=== PATIENT | female | born 1995 | race Hispanic/Latino ===

== ENCOUNTER 2019-11-02 16:48 | Inpatient (IN) | payer BC ==
[~2019-11-02] VITALS: Ht 157.5 cm; Wt 52.2 kg
[2019-11-02] MEDS ORDERED: AMPICILLIN 2GM+NS 100ML 100 ML IV SCH (18:00)
[2019-11-02] MEDS ORDERED: MORPHINE SULFATE 10 MG/ML 1ML SYG IM PRN (18:00)
[2019-11-02 18:15] LABS: MEAN CORPUSCULAR HEMOGLOBIN 30.7 pg (27.0-33.0); MEAN CORPUSCULAR HGB CONC 33.5 g/dL (32.0-36.0); MEAN CORPUSCULAR VOLUME 91.6 fL (79-99); RED BLOOD CELL COUNT(AUTO) 4.04 MIL/uL (4.00-5.50); RED CELL DISTRIBUTION WIDTH 12.8 % (11.0-15.5); WHITE BLOOD COUNT (AUTO) 8.2 K/uL (4.8-10.8)
[2019-11-02] MEDS: LACTATED RINGERS 1000ML 1,000 ML IV PRN (18:20)
[2019-11-02 18:21] LABS: BILIRUBIN,URINE Negative (NEGATIVE); COLOR,URINE Yellow (YELLOW); GLUCOSE, URINE (UA) TRACE mg/dL (NEGATIVE); KETONES,URINE Negative (NEGATIVE); LEUKOCYTE ESTERASE ,URINE Moderate (NEGATIVE); NITRATE,URINE Negative (NEGATIVE); OCCULT BLOOD,URINE Negative (NEGATIVE); PROTEIN,URINE Negative (NEGATIVE)
[2019-11-02 18:27] LABS: APPEARANCE,URINE SLIGHTLY CLOUDY (CLEAR)
[2019-11-02 18:30] LABS: AMPHET/METH SCREEN,URINE NEGATIVE (NEGATIVE); BARBITURATE SCREEN, URINE NEGATIVE (NEGATIVE); BENZODIAZEPINES SCREEN,URINE NEGATIVE (NEGATIVE); CANNABINOID SCREEN,URINE NEGATIVE (NEGATIVE); COCAINE SCREEN,URINE NEGATIVE (NEGATIVE); OPIATE SCREEN,URINE NEGATIVE (NEGATIVE); PHENCYCLIDINE SCREEN,URINE NEGATIVE (NEGATIVE)
[2019-11-02 19:12] LABS: BACTERIA,URINE Moderate /HPF (None Seen); MUCUS,URINE Few LPF (None Seen); RBC,URINE 0-1 /HPF (0-1); SQUAMOUS EPITHELIAL CELL,UR Many /HPF (0-2)
[2019-11-02] MEDS: AMPICILLIN 1GM+NS 50ML 50 ML IV SCH (22:36)
[2019-11-03] MEDS: LACTATED RINGERS 1000ML 1,000 ML IV PRN ×2 (02:09→23:40)
[2019-11-03] MEDS: AMPICILLIN 1GM+NS 50ML 50 ML IV SCH ×6 (02:09→23:40)
[2019-11-03] MEDS: OXYTOCIN-LR 20 UNITS/1000 ML 1,000 ML IV SCH ×2 (05:08→23:40)
[2019-11-03] MEDS ORDERED: MEPERIDINE-PF 50 MG/ML SYG IVP SCH (10:00)
[2019-11-03] MEDS ORDERED: PROMETHAZINE HCL 25 MG/ML 1ML AMPULE IM SCH (10:00)
[2019-11-03] MEDS ORDERED: EPHEDRINE SULFATE 50 MG/ML AMPULE IVP PRN ×2 (10:00→14:15)
[2019-11-03] MEDS ORDERED: NALOXONE HCL 0.4 MG/1 ML ML IV PRN ×2 (10:00→14:15)
[2019-11-03] MEDS ORDERED: LACTATED RINGERS 500 ML 500 ML IV PRN ×2 (10:00→14:15)
[2019-11-03] MEDS ORDERED: ROPIVACAINE 0.2% 100ML VIAL 100 ML EP SCH ×2 (10:00→14:15)
[2019-11-03] MEDS ORDERED: FENTANYL CITRATE PF 50 MCG/1 ML 2ML VIAL ONE (15:02)
[2019-11-03 19:14] VITALS: BP 114/74
[2019-11-03 19:43] LABS: RAPID PLASMA REAGIN NONREACTIVE (NONREACTIVE)
[2019-11-03] MEDS ORDERED: LIDOCAINE HCL 1% 20 ML VIAL ONE (23:42)
[2019-11-04] MEDS ORDERED: BENZOCAINE/LANOLIN/ALOE VERA 60 ML AEROSOL TP PRN (04:15)
[2019-11-04] MEDS ORDERED: WITCH HAZEL 1 PAD TP PRN (04:15)
[2019-11-04] MEDS ORDERED: OXYTOCIN-LR 20 UNITS/1000 ML 1,000 ML IV SCH (04:15)
[2019-11-04] MEDS ORDERED: ACETAMINOPHEN-CODEINE 300/30MG TAB PO PRN (04:15)
[2019-11-04] MEDS ORDERED: LANOLIN 30GM OINTMENT TP PRN (04:15)
[2019-11-04] MEDS: IBUPROFEN 600 MG TABLET PO PRN ×2 (05:03→18:52)
--- NOTE | 2019-11-04 07:06 | NUR ---
REPORT GIVEN TO CHAPO ANDERSONN
[2019-11-04 07:28] VITALS: BP 115/61
[2019-11-04] MEDS: DOCUSATE SODIUM 100 MG CAP PO SCH ×2 (09:22→21:35)
[2019-11-04 11:15] VITALS: BP 130/71
--- NOTE | 2019-11-04 12:00 | NUR ---
SPOKE WITH DR. HARRIS VIA TELEPHONE. UPDATED MD ON PATIENT'S STATUS. PATIENT IS OKAY TO BE DISCHARGED TODAY IF BABY IS BEING DISCHARGED.
[2019-11-04 16:30] VITALS: BP 126/60
[2019-11-04] MEDS ORDERED: PNV1TABL17 PO (18:46)
[2019-11-04 19:25] VITALS: BP 111/76
[2019-11-04 23:22] VITALS: BP 110/69
[2019-11-05] MEDS: AMPICILLIN 1GM+NS 50ML 50 ML IV SCH (02:00)
[2019-11-05 03:13] VITALS: BP 125/79
[2019-11-05] MEDS: IBUPROFEN 600 MG TABLET PO PRN ×2 (03:31→08:50)
[2019-11-05 06:14] LABS: HEPATITIS Bs ANTIGEN SCREEN P Negative (Negative)
[2019-11-05 07:31] VITALS: BP 117/78
[2019-11-05] MEDS: DOCUSATE SODIUM 100 MG CAP PO SCH (08:50)
[2019-11-05 11:10] VITALS: BP 115/81
--- NOTE | 2019-11-05 13:25 | NUR ---
DISCHARGE PT LEFT UNIT VIA WHEELCHAIR, WITH BABY IN ARMS, ACCOMPANIED BY SIGNIFICANT OTHER. DENIED PAIN AND HAD NO COMPLAINTS. BABY STRAPPED IN CAR SEAT. PT AND BABY TRANSPORTED BY PERSONAL VEHICLE.
== END 2019-11-05 13:25 | disposition home or self-care (01) | DRG 806 ==
LOC: LDH 17:34 → WSH 11-04 06:40
PROC: 10E0XZZ Delivery of Products of Conception, External Approach (ICD-10-PCS; principal; 2019-11-04)
PROC: 3E0R3BZ Introduction of Anesthetic Agent into Spinal Canal, Percutaneous Approach (ICD-10-PCS; 2019-11-04)
PROC: 00HU33Z Insertion of Infusion Device into Spinal Canal, Percutaneous Approach (ICD-10-PCS; 2019-11-04)
DX: O36.5930 Maternal care for other known or suspected poor fetal growth, third trimester, not applicable or unspecified (principal); O41.03X0 Oligohydramnios, third trimester, not applicable or unspecified; Z37.0 Single live birth; O99.824 Streptococcus B carrier state complicating childbirth; Z3A.37 37 weeks gestation of pregnancy
CPT/HCPCS: 36415; 80305; 81001; 85027; 86592; 86701; 86850; 86900; 86901; 87070; 87076; 87077; 87088; 87186; 87340; 87390; A4314; G0378; J0290; J2175; J2550; J2590; J2795; J3010; J7120